=== PATIENT | male | born 1990 | race Caucasian/White ===

== ENCOUNTER 2020-01-28 16:13 | Emergency (ER) | payer OTHER ==
[~2020-01-28] VITALS: Ht 180.3 cm; Wt 70.3 kg
[2020-01-28 16:56] LABS: ABSOLUTE NEUTROPHILS 1.9 thou/uL (1.4-8.2); EOSINOPHILS 0.4 % (0.0-3.0); HEMATOCRIT 49.9 % (42.0-52.0); HEMOGLOBIN 17.1 gm/dL (14.0-18.0); MCH 33.6 pg (26.0-34.0); MCHC 34.3 g/dL (28.0-37.0); MONOCYTES 5.8 % (1.0-8.0); PLATELET COUNT 155 thou/uL (150-400); POLYS 41.8 % (36.0-66.0); RBC 5.09 mil/uL (4.50-6.00); RDW 13.6 % (10.5-14.5); WBC 4.6 thou/uL (4.0-11.0)
[2020-01-28 17:09] LABS: CALCIUM 8.7 mg/dL (8.5-10.1); CREATININE 0.7 mg/dL (0.7-1.3); POTASSIUM 3.3 mmol/L (3.5-5.1)
[2020-01-28 17:14] LABS: ALBUMIN 4.2 g/dL (3.4-5.0); TOTAL BILIRUBIN 0.6 mg/dL (<0.1-1.0); TOTAL PROTEIN 8.1 g/dL (6.4-8.2)
[2020-01-28] MEDS ORDERED: TESSALON PERLE100 MG PO (19:15)
[2020-01-28 20:53] VITALS: BP 124/76
== END 2020-01-28 20:30 | disposition home or self-care (01) ==
LOC: ER 16:13
PROVIDERS: Physician Assistant
DX: J06.9 Acute upper respiratory infection, unspecified (principal); E87.6 Hypokalemia; F10.129 Alcohol abuse with intoxication, unspecified

== ENCOUNTER 2020-03-02 09:34 | Emergency (ER) | payer OTHER ==
[~2020-03-02] VITALS: Ht 180.3 cm; Wt 71.7 kg
[~2020-03-02 09:34] MED LIST: TESSALON PERLE100 MG PO
[2020-03-02 09:43] VITALS: BP 114/75
[2020-03-02] MEDS ORDERED: HYDROCORTISONE30 G9 RECTAL (10:10)
== END 2020-03-02 10:20 | disposition home or self-care (01) ==
LOC: ER 09:34
DX: K59.00 Constipation, unspecified (principal); K62.89 Other specified diseases of anus and rectum; Z79.899 Other long term (current) drug therapy